=== PATIENT | female | born 1955 | race Caucasian/White ===

== ENCOUNTER 2017-02-02 15:51 | Emergency (ER) | payer MEDICAID ==
[2017-02-02] MEDS ORDERED: NACL 0.9% 1000 ML 1,000 ML IV ONE ×2 (16:02→18:58)
[2017-02-02 16:49] LABS: INR 1.02 (0.87-1.13)
[2017-02-02 16:50] LABS: Partial Thromboplastin Time 26.4 Sec. (24.2-36.6)
[2017-02-02 16:51] LABS: Alanine Aminotransferase 19 units/L (7-56); Albumin 4.1 g/dL (3.9-5); Albumin/Globulin Ratio 1.3 %; Alkaline Phosphatase 80 units/L (35-129); Anion Gap 19 mmol/L; BUN/Creatinine Ratio 18.75; Blood Urea Nitrogen 15 mg/dL (7-17); Calcium 8.8 mg/dL (8.4-10.2); Carbon Dioxide 25 mmol/L (22-30); Chloride 99.9 mmol/L (98-107); Glucose 95 mg/dL (65-100); Lipase 31 units/L (13-60); Potassium 4.4 mmol/L (3.6-5.0); Sodium 139 mmol/L (137-145); Total Protein 7.3 g/dL (6.3-8.2)
[2017-02-02 17:05] LABS: Basophils % (Auto) 0.4 % (0.0-1.8); Eosinophils % (Auto) 1.4 % (0.0-4.3); Hemoglobin 13.9 gm/dl (10.1-14.3); Mean Corpuscular HGB Conc 33 % (30-34); Mean Corpuscular Hemoglobin 32 pg (28-32); Mean Corpuscular Volume 96 fl (79-97); Platelet Count 170 K/mm3 (140-440); Red Blood Count 4.39 M/mm3 (3.65-5.03); Red Cell Distribution Width 13.3 % (13.2-15.2)
[2017-02-02 17:31] LABS: Bilirubin,Urine NEG (Negative); Blood,Urine MOD (Negative); Ketones,Urine NEG (Negative); Leukocyte Esterase,Urine MOD (Negative); Mucus,Urine FEW /HPF; Nitrite,Urine NEG (Negative); Protein,Urine <15 mg/dL mg/dL (Negative); Urobilinogen,Urine < 2.0 mg/dL (<2.0)
--- NOTE | 2017-02-02 19:00 | Emergency Department Report ---
ED GI Bleed HPI - General Chief complaint: GI Bleed Stated complaint: PAINFUL URINATION,BLOOD IN URINE Time Seen by Provider: 02/02/17 18:37 Source: patient Mode of arrival: Ambulatory Limitations: Language Barrier, Physical Limitation - History of Present Illness Initial comments: 59-year-old female with past medical history hypertension, hyperlipidemia, presenting to the emergency department complaining of rectal bleeding. Patient states she had a bowel movement prior to ED arrival and noticed bright red blood per rectum in the toilet. Patient states she does have mild abdominal cramping. That's nonradiating. Intermittent. No relaxing or remitting factors. Pertinent negatives: Fever/chills, chest pain, headache, nausea/ vomiting/diarrhea. Patient denies being on blood thinners. History obtained with aid a spanish medical interpreter complaint: blood on toilet paper, gross hematochezia -: Sudden Radiation: LLQ Severity scale (0 -10): 2 Quality: cramping Consistency: intermittent Improves with: none Worsens with: none Associated Symptoms: denies: nausea, vomiting, epistaxis, loss of appetite, malaise, easy bruising, shortness of breath, syncope, weakness - Related Data Previous Rx's Medication Instructions Recorded Last Taken Type Cephalexin [Keflex] 500 mg PO Q12HR #20 cap 07/03/16 Unknown Rx HYDROcodone/APAP 5-325 [[place] 1 each PO Q6HR PRN #10 tablet 07/03/16 Unknown Rx 5-325 mg TAB] Dicyclomine [Bentyl] 20 mg PO QID #20 bottle 02/02/17 Unknown Rx Docusate Sodium [Colace] 100 mg PO BID PRN #20 capsule 02/02/17 Unknown Rx Nitrofurantoin [place]/M-Cryst 100 mg PO Q12HR #20 capsule 02/02/17 Unknown Rx [Macrobid CAP] Pantoprazole [Protonix] 40 mg PO QDAY #30 tablet 02/02/17 Unknown Rx Allergies Allergy/AdvReac Type Severity Reaction Status Date / Time No Known Allergies Allergy Unverified 05/30/16 10:29 ED Review of Systems ROS: Stated complaint: PAINFUL URINATION,BLOOD IN URINE Other details as noted in HPI Constitutional: denies: chills, fever Eyes: denies: eye pain, eye discharge, vision change ENT: denies: ear pain, throat pain Respiratory: denies: cough, shortness of breath, wheezing Cardiovascular: denies: chest pain, palpitations Endocrine: no symptoms reported Gastrointestinal: abdominal pain, hematochezia. denies: nausea, diarrhea, constipation, hematemesis, melena Genitourinary: denies: urgency, dysuria, discharge Musculoskeletal: denies: back pain, joint swelling, arthralgia Skin: denies: rash, lesions Neurological: denies: headache, weakness, paresthesias Psychiatric: denies: anxiety, depression Hematological/Lymphatic: denies: easy bleeding, easy bruising ED Past Medical Hx - Past Medical History Previous Medical History?: Yes Hx Hypertension: Yes Hx Heart Attack/AMI: Yes - Surgical History Past Surgical History?: Yes Hx Pacemaker: Yes Hx Internal Defibrillator: Yes - Social History Smoking Status: Never Smoker Substance Use Type: None - Medications Home Medications: Home Medications Medication Instructions Recorded Confirmed Last Taken Type Cephalexin [Keflex] 500 mg PO Q12HR #20 cap 07/03/16 Unknown Rx HYDROcodone/APAP 5-325 [[place] 1 each PO Q6HR PRN #10 tablet 07/03/16 Unknown Rx 5-325 mg TAB] Dicyclomine [Bentyl] 20 mg PO QID #20 bottle 02/02/17 Unknown Rx Docusate Sodium [Colace] 100 mg PO BID PRN #20 capsule 02/02/17 Unknown Rx Nitrofurantoin [place]/M-Cryst 100 mg PO Q12HR #20 capsule 02/02/17 Unknown Rx [Macrobid CAP] Pantoprazole [Protonix] 40 mg PO QDAY #30 tablet 02/02/17 Unknown Rx ED Physical Exam - General Limitations: Language Barrier, Physical Limitation General appearance: alert, in no apparent distress - Head Head exam: Present: atraumatic, normocephalic - Eye Eye exam: Present: normal appearance - ENT ENT exam: Present: mucous membranes moist - Neck Neck exam: Present: normal inspection - Respiratory Respiratory exam: Present: normal lung sounds bilaterally. Absent: respiratory distress - Cardiovascular Cardiovascular Exam: Present: regular rate, normal rhythm. Absent: systolic murmur, diastolic murmur, rubs, gallop - GI/Abdominal GI/Abdominal exam: Present: soft, tenderness (LLQ tenderness that is mild), normal bowel sounds, hyperactive bowel sounds, organomegaly. Absent: distended , guarding, rebound, rigid, hypoactive bowel sounds, mass - Rectal Rectal exam: Present: normal inspection, normal rectal tone, heme (+) stool ( light brown stool ) - Extremities Exam Extremities exam: Present: normal inspection - Back Exam Back exam: Present: normal inspection - Neurological Exam Neurological exam: Present: alert, oriented X3 - Psychiatric Psychiatric exam: Present: normal affect, normal mood - Skin Skin exam: Present: warm, dry, intact, normal color. Absent: rash ED Course Vital Signs 02/02/17 02/02/17 02/02/17 15:56 18:26 18:30 Temperature 98.7 F Pulse Rate 75 Respiratory 18 Rate Blood Pressure 161/85 149/58 Blood Pressure [Left] O2 Sat by Pulse 98 97 100 Oximetry 02/02/17 02/02/17 02/02/17 18:40 18:50 18:54 Temperature 98.7 F Pulse Rate 80 Respiratory 18 Rate Blood Pressure 149/58 149/58 Blood Pressure 121/70 [Left] O2 Sat by Pulse 98 98 100 Oximetry 02/02/17 02/02/17 02/02/17 19:00 19:10 19:20 Temperature Pulse Rate 61 Respiratory 12 Rate Blood Pressure 141/61 141/61 149/58 Blood Pressure [Left] O2 Sat by Pulse 99 99 97 Oximetry 02/02/17 02/02/17 02/02/17 19:30 19:52 20:00 Temperature Pulse Rate 63 Respiratory 13 Rate Blood Pressure 149/58 149/58 148/60 Blood Pressure [Left] O2 Sat by Pulse 97 99 96 Oximetry 02/02/17 02/02/17 02/02/17 20:10 20:12 20:20 Temperature Pulse Rate Respiratory 18 Rate Blood Pressure 148/60 158/57 Blood Pressure [Left] O2 Sat by Pulse 95 95 Oximetry 02/02/17 02/02/17 02/02/17 20:30 20:42 21:10 Temperature 98.4 F Pulse Rate 62 Respiratory 14 14 Rate Blood Pressure 158/57 Blood Pressure 130/52 [Left] O2 Sat by Pulse 96 97 Oximetry ED Medical Decision Making - Lab Data Result diagrams: 02/02/17 16:09 02/02/17 16:09 - EKG Data -: EKG Interpreted by [facility] EKG shows normal: sinus rhythm (71), axis (upright), intervals (qrs 90), QRS complexes (90), ST-T waves (no elevation nor depression ) Rate: normal - EKG Data When compared to previous EKG there are: previous EKG unavailable - Radiology Data Radiology results: report reviewed, image reviewed There is atelectasis in the dependent portion the lung bases. No pleural effusion is seen. The liver, gallbladder, pancreas, spleen and adrenal glands appear within normal limits. Kidneys appeared normal. Aorta is normal in caliber. Bladder appears normal. Appendix appears normal. No gross abnormalities identified. No acute osseous abnormalities and affect. There are degenerative changes in the spine. Impression: Appendix appears within normal limits. No free fluid or inflammatory changes in the abdomen or pelvis. Dr Sherman - Medical Decision Making 61 yo female with PMHX of HTN, HLD presenting to ED complaining of one episode of bloody stools. I have discussed results with pt: stable vitals, normal H/H. of consulted gastroenterology Dr. Mejia who states if patient is admitted tonight she will not have colonoscopy until Sunday. Patient is deciding she wants discharge home. I agree given that there are no changes in her physical exam to suggest she has acute GI bleed. I have given patient her family strict return precautions and they'll verbalize understanding. Patient states she'll follow up with GI outpatient. - Differential Diagnosis AV malformation, COLON CA, Peptic Ulcer Disease Critical Care Time: No Critical care attestation.: If time is entered above; I have spent that time in minutes in the direct care of this critically ill patient, excluding procedure time. ED Disposition Clinical Impression: Rectal bleeding, Abdominal pain, UTI (urinary tract infection) Disposition: TO HOME OR SELFCARE Is pt being admited?: No Does the pt Need Aspirin: No Condition: Stable Instructions: Rectal Bleeding (ED) Prescriptions: Dicyclomine [Bentyl] 20 mg PO QID #20 bottle Docusate Sodium [Colace] 100 mg PO BID PRN #20 capsule PRN Reason: Pain , Severe (7-10) Nitrofurantoin [place]/M-Cryst [Macrobid CAP] 100 mg PO Q12HR #20 capsule Pantoprazole [Protonix] 40 mg PO QDAY #30 tablet Referrals: PRIMARY CARE, [Primary Care Provider] - 2-3 Days RAJNI MELÉNDEZ MD, PHD [Staff Physician] - 2-3 Days MANISH SANTORO MD [Staff Physician] - 2-3 Days Forms: Accompanied Note Time of Disposition: 22:06
[2017-02-02] MEDS ORDERED: MORPHINE IV ONE (20:02)
[2017-02-02] MEDS ORDERED: ZOFRAN IV ONE (20:02)
[2017-02-02] MEDS ORDERED: NACL ONE (20:36)
[2017-02-02 21:10] VITALS: BP 130/52
--- NOTE | 2017-02-02 21:18 | Cat Scan Report ---
FINAL REPORT EXAM: CT ABDOMEN PELVIS W CON HISTORY: lower abdominal pain TECHNIQUE: Serial axial images through the abdomen and pelvis with coronal and sagittal reconstruction. Intravenous administration of 100 milliliters Omni 300 PRIORS: None. FINDINGS: There is atelectasis in the dependent portion of the lung bases. No pleural effusion is seen. The liver, gallbladder, pancreas, spleen and adrenal glands appear within normal limits. Kidneys appear normal. Aorta is normal in caliber. Bladder appears normal. Appendix appears normal. No gross bowel abnormality is identified. No acute osseous abnormality is identified. There are degenerative changes in the spine. IMPRESSION: 1. Appendix appears within normal limits. 2. No free fluid or inflammatory changes are seen in the abdomen or pelvis.
--- NOTE | 2017-02-03 09:21 | XRay Report ---
Abdominal series: History: Rectal bleeding. Findings: Cardiomegaly. Stable pacemaker. No acute lung changes. No free intraperitoneal air. No bowel distention or wall thickening. Stool in ascending colon. No radiopaque calculus or abnormal calcification. Probably distended urinary bladder. Impression: No bowel distention. Findings as described.
== END 2017-02-02 22:32 | disposition home or self-care (01) ==
LOC: ED 15:51
DX: N39.0 Urinary tract infection, site not specified (principal); K62.5 Hemorrhage of anus and rectum; I10 Essential (primary) hypertension; I25.2 Old myocardial infarction
CPT/HCPCS: 36415; 74022; 74177; 80053; 81001; 83690; 85025; 85610; 85730; 86850; 86900; 86901; 93005; 93010; 96361; 96374; 96375; 99285; J2270; J2405; J7030; Q9967

== ENCOUNTER 2019-09-29 07:46 | Outpatient (CLI) | payer MEDICAID | END 2019-09-29 07:47 | disposition home or self-care (01) | LOC: PF 07:46 | PROVIDERS: ATTEND Internal Medicine Cardiovascular Disease | DX: Z95.810 Presence of automatic (implantable) cardiac defibrillator (principal) | CPT/HCPCS: 94010; 94727; 94729 ==